=== PATIENT | male | born 1980 | race Caucasian/White ===

== ENCOUNTER 2018-03-04 17:46 | Emergency (ER) | payer MEDICAID ==
[2018-03-04 17:52] VITALS: BP 117/75
--- NOTE | 2018-03-04 18:20 | EDPHY ---
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 One of the trees fell, hitting him in the nose. This happened within the past 2 hr. He reports pain in the nose and nosebleed that stopped prior to arrival. He has no headache, neck pain or stiffness. No visual disturbance. No dizziness or loss of consciousness. He has no chest, back or abdominal pain. There was a laceration to the nasal bridge. His tetanus is up-to-date less than 3 years ago. No other associated complaints or modifying factors. REVIEW OF SYSTEMS: Ten systems reviewed and are negative unless otherwise noted in the HPI PCP: None SPECIALISTS: None PAST MEDICAL HISTORY: None PAST SURGICAL HISTORY: No surgical history SOCIAL HISTORY: Daily smoker. Lives here independently in [place] FAMILY HISTORY: Noncontributory EXAMINATION General Appearance: Alert, no distress Head: normocephalic, atraumatic. No depression or hematoma. No Sutton sign. No raccoon eyes. Eyes: Pupils equal and round, no conjunctival pallor or injection. EOM symmetric. ENT, Mouth: Mucous membranes moist. The nose is swollen and ecchymotic but midline. There is a superficial nasal laceration without visualization of the nasal bone. There is dried blood in both nostrils but no active bleeding. There is no bleeding in the posterior pharynx. There is no septal hematoma and the septum is well visualized. Neck: Normal inspection, supple, non-tender. No crepitus or deformity Respiratory: Lungs are clear to auscultation Cardiovascular: Regular rate and rhythm Neurological: A&O, nonfocal, normal gait. Strength is symmetric in all 4 limbs. Skin: Warm and dry, no rash. Nasal abrasion as above. Skin otherwise grossly intact Extremities: Nontender, no pedal edema Psychiatric: Mood and affect normal DIFFERENTIAL DIAGNOSES: Including but not limited to nasal fracture, nasal dislocation, subluxation, septal hematoma, epistaxis, closed head injury, concussion, intracranial hemorrhage MDM: 6:20 p.m. Expected nasal fracture by clinical exam with no septal hematoma. No malalignment. Superficial abrasion to the nasal bridge that does not require suture repair. He has declined x-ray. I do not feel he warrants a CT scan of the head based on [place] head rules or clinical appearance. I did offer this to him but he has declined. I do feel that we can treat him clinically for nasal fracture as he has no septal hematoma. He is awake alert no acute distress. His GCS is 15. His laceration does not require suture repair. It will be irrigated and dressed. We discussed follow up with ENT in 7-10 days should he wish to pursue any imaging or correction. We discussed ED precautions for nosebleed, headache, visual disturbance or vomiting. We discussed raising his head of bed 45 and avoiding blowing his nose. I discussed that he should not perform any vigorous exercise until seen by ENT. He discharged home stable condition. SUPERVISION: This patient was independently evaluated without direct involvement of or examination by the attending physician. (Elvin Jeffrey) Constitutional: Initial Vital Signs Temperature (C) 36.7 C 03/04/18 17:50 Heart Rate 74 03/04/18 17:50 Respiratory Rate 17 03/04/18 17:50 Blood Pressure 117/75 03/04/18 17:50 O2 Sat (%) 99 03/04/18 17:50 O2 Delivery Mode Room Air Allergies/Adverse Reactions: No Known Allergies Allergy (Unverified 03/04/18 17:49) Home Medications: Medication Instructions Recorded Naproxen 500 mg PO BID #20 tablet 03/04/18 MDM/Departure - [facility] ED Course/Re-evaluation: I did not see this patient while he was in the emergency department. However his care was discussed with the PA while the patient was in the department. I agree with treatment plan and management (Carlos Sharpe) - Depart Disposition: Home, Routine, Self-Care Clinical Impression: Nasal bone fracture Qualifiers: Encounter type: initial encounter Fracture type: closed Qualified Code(s): S02.2XXA - Fracture of nasal bones, initial encounter for closed fracture Nasal abrasion Qualifiers: Encounter type: initial encounter Qualified Code(s): S00.31XA - Abrasion of nose, initial encounter Closed head injury Qualifiers: Encounter type: initial encounter Qualified Code(s): S09.90XA - Unspecified injury of head, initial encounter Condition: Good Instructions: Naproxen (By mouth), Nasal Fracture (ED) Additional Instructions: 1. [id number] nasal saline spray 2-3 times daily 2. Do not blow your nose for 7-14 days 3. Elevate your head of bed by 45 on sleeping 4. Contact Ear Nose and Throat physician on Wednesday for outpatient care 5. ED precautions as discussed Prescriptions: Naproxen 500 mg PO BID #20 tablet Referrals: NONE *PRIMARY CARE P,. [Primary Care Provider] - As per Instructions Carlos Mar MD [Medical Doctor] - As per Instructions
== END 2018-03-04 18:48 | disposition home or self-care (01) ==
DX: S02.2XXA Fracture of nasal bones, initial encounter for closed fracture (principal); S09.90XA Unspecified injury of head, initial encounter; F17.200 Nicotine dependence, unspecified, uncomplicated; W22.8XXA Striking against or struck by other objects, initial encounter; Y92.009 Unspecified place in unspecified non-institutional (private) residence as the place of occurrence of the external cause; Y99.8 Other external cause status; Y93.89 Activity, other specified